=== PATIENT | female | born 1980 | race Caucasian/White ===

== ENCOUNTER 2017-03-04 22:44 | Emergency (ER) | payer MEDICAID ==
[2017-03-04 22:46] VITALS: BMI 32.9
[2017-03-04] MEDS ORDERED: Albuterol-Ipratrop 3 mg / 0.5 (3 ml) UD ONE (22:49)
--- NOTE | 2017-03-04 22:50 | ED PDOC ---
Arrival/HPI - General Time Seen by Provider: 03/04/17 22:45 Historian: Patient - History of Present Illness Narrative History of Present Illness (Text): 03/04/17 22:49 Skinny Kincaid is a 36 year old female who presents to the Emergency department complaining of shortness of breath. Patient states she began experiencing shortness of breath, cough, and throat itchiness after she went to the park this morning with her children. Patient notes she has a history of seasonal allergies. Patient reports symptoms are consistent with previous episodes of seasonal allergies. Patient denies any fever, chills, chest pain, nausea, vomiting, diarrhea, urinary symptoms, back pain, neck pain, headache, dizziness , or any other complaints. Time/Duration: Other (this morning) Symptom Onset: Gradual Symptom Course: Unchanged Activities at Onset: Light Context: Other (Park) Past Medical History - Provider Review Nursing Documentation Reviewed: Yes - Infectious Disease Hx of Infectious Diseases: None - Tetanus Immunization Tetanus Immunization: Unknown - Past Medical History Past Medical History: No Previous - Renal Hx Kidney Stones: Yes - Musculoskeletal/Rheumatological Hx Back Pain: Yes - Psychiatric Hx Depression: No Hx Emotional Abuse: No Hx Physical Abuse: No Hx Substance Use: No - Surgical History Hx Cholecystectomy: Yes - Anesthesia Hx Anesthesia: Yes Hx Anesthesia Reactions: No Hx Malignant Hyperthermia: No - Suicidal Assessment Feels Threatened In Home Enviroment: No Family/Social History - Physician Review Nursing Documentation Reviewed: Yes Family/Social History: No Known Family HX Smoking Status: Never Smoked Hx Alcohol Use: No Hx Substance Use: No Allergies/Home Meds Allergies/Adverse Reactions: Allergies No Known Allergies Allergy (Verified 03/04/17 22:46) Review of Systems - Physician Review All systems were reviewed & negative as marked: Yes - Review of Systems Constitutional: Normal. absent: Fevers Eyes: Normal ENT: Sore Throat (+throat itchiness) Respiratory: SOB, Cough Cardiovascular: Normal. absent: Chest Pain Gastrointestinal: Normal. absent: Abdominal Pain, Diarrhea, Nausea, Vomiting Genitourinary Female: Normal. absent: Dysuria, Frequency, Hematuria, Urine Output Changes Musculoskeletal: Normal. absent: Back Pain, Neck Pain Skin: Normal. absent: Rash Neurological: Normal. absent: Headache, Dizziness Endocrine: Normal Hemo/Lymphatic: Normal Psychiatric: Normal Physical Exam Vital Signs Reviewed: Yes Vital Signs Pulse Resp BP Pulse Ox 03/05/17 00:45 110 H 20 120/70 96 03/04/17 22:57 14 98 03/04/17 22:51 118 H 157/115 H 98 Temperature: Afebrile Blood Pressure: Normal Pulse: Regular Respiratory Rate: Normal Appearance: Positive for: Well-Appearing, Non-Toxic, Comfortable Pain Distress: None Mental Status: Positive for: Alert and Oriented X 3 - Systems Exam Head: Present: Atraumatic, Normocephalic Pupils: Present: PERRL Extroacular Muscles: Present: EOMI Conjunctiva: Present: Normal Ears: Present: Normal, NORMAL TM, Normal Canal. No: Erythema Mouth: Present: Moist Mucous Membranes Pharnyx: Present: Normal. No: ERYTHEMA, EXUDATE, TONSILS ENLARGED, Peritonsilar Swelling, Uvular Deviation, Muffled/Hoarse Voice, Strider, Soft Palate/Uvular Edema Nose (External): Present: Atraumatic Nose (Internal): Present: Normal Inspection Neck: Present: Normal Range of Motion Respiratory/Chest: Present: Wheezes. No: Respiratory Distress, Accessory Muscle Use Cardiovascular: Present: Regular Rate and Rhythm, Normal S1, S2. No: Murmurs Abdomen: Present: Normal Bowel Sounds. No: Tenderness, Distention, Peritoneal Signs Back: Present: Normal Inspection Upper Extremity: Present: Normal Inspection. No: Cyanosis, Edema Lower Extremity: Present: Normal Inspection. No: Edema Neurological: Present: GCS=15, CN II-XII Intact, Speech Normal Skin: Present: Warm, Dry, Normal Color. No: Rashes Psychiatric: Present: Alert, Oriented x 3, Normal Insight, Normal Concentration Medical Decision Making ED Course and Treatment: 03/04/17 22:49 Impression: 36 year old female complaining of shortness of breath, cough, and throat itchiness today. Differential Diagnosis include but are not limited to: asthmatic bronchitis vs. asthma Plan: -- Benadryl -- Duoneb -- Solu-medrol -- Reassess and disposition Progress Notes: 03/05/17 02:25 On re-evaluation, the patient feels better and is in no acute distress. I have discussed the results and plan with the patient, who expresses understanding. Patient in agreement with plan to discharged home. Patient is stable for discharge. Patient was instructed to follow up with physician/clinic in 1-2 days or return if symptoms worsen or new concerning symptoms arise. Re-evaluation Time: 00:27 Reassessment Condition: Re-examined, Improved - Medication Orders Current Medication Orders: Discontinued Medications Albuterol/Ipratropium (Duoneb 3 Mg/0.5 Mg (3 Ml) Ud) Confirm Administered Dose 9 ml .ROUTE .STK-MED ONE Stop: 03/04/17 22:50 Last Admin: 03/04/17 23:26 Dose: 9 ml Albuterol/Ipratropium (Duoneb 3 Mg/0.5 Mg (3 Ml) Ud) 3 ml IH Q15M MATT Last Admin: 03/04/17 23:15 Dose: 3 ml Diphenhydramine HCl (Benadryl) 25 mg IVP ONCE ONE Stop: 03/04/17 22:54 Last Admin: 03/04/17 23:13 Dose: 25 mg Methylprednisolone (Solu-Medrol) 125 mg IVP ONCE ONE Stop: 03/04/17 22:54 Last Admin: 03/04/17 23:05 Dose: 125 mg - Ivetteibe Statement The provider has reviewed the documentation as recorded by the Edwar Montelongo All medical record entries made by the Edwar were at my direction and personally dictated by me. I have reviewed the chart and agree that the record accurately reflects my personal performance of the history, physical exam, medical decision making, and the department course for this patient. I have also personally directed, reviewed, and agree with the discharge instructions and disposition. Disposition/Present on Arrival - Present on Arrival Any Indicators Present on Arrival: No History of DVT/PE: No History of Uncontrolled Diabetes: No Urinary Catheter: No History Surgical Site Infection Following: None - Disposition Have Diagnosis and Disposition been Completed?: Yes Diagnosis: Asthmatic bronchitis Disposition: HOME/ ROUTINE Disposition Time: 00:28 Condition: GOOD Discharge Instructions (ExitCare): Bronchospasm (ED) Prescriptions: Albuterol 0.083% [Albuterol 0.083% Inhal Shilpa (2.5 mg/3 ml) UD] 2.5 mg IH QID # 25 neb Nebulizer and Compressor [Comp-Air Elite Comp Nebulizer] 1 each MC QID #1 each predniSONE [predniSONE Tab] 20 mg PO TID #15 tab Albuterol HFA [Ventolin HFA] 1 puff IH QID #1 puff
[2017-03-04] MEDS ORDERED: DiphenhydrAMINE 50 mg/ml Inj IVP ONE (22:53)
[2017-03-04] MEDS: Albuterol-Ipratrop 3 mg / 0.5 (3 ml) UD IH SCH (23:15)
[2017-03-05 00:46] VITALS: BP 120/70; PULSE 110; RESP 20; O2SAT 96
== END 2017-03-05 00:54 | disposition home or self-care (01) ==
LOC: ED 22:44
DX: J45.909 Unspecified asthma, uncomplicated (principal)
CPT/HCPCS: 96374; 96375; 99285; J1200; J2930

== ENCOUNTER 2017-04-16 10:33 | Emergency (ER) | payer MEDICAID ==
[2017-04-16 10:41] VITALS: BMI 35.1
[2017-04-16 10:46] VITALS: TEMP 97.8
--- NOTE | 2017-04-16 11:33 | ED PDOC ---
Arrival/HPI - General Chief Complaint: Upper Extremity Problem/Injury Time Seen by Provider: 04/16/17 11:25 Historian: Patient - History of Present Illness Narrative History of Present Illness (Text): 04/16/17 11:19 A 37 year old female presents to the emergency department complaining of left neck and shoulder pain for the past 5 days after a slip and fall in the shower. Pain is described as a burning sensation which is worse with movement. She was seen by her PMD 3 days ago and prescribed Naproxen and Flexeril. Medications have brought her minimal relief. Patient denies any head trauma, loss of consciousness, other injuries or complaints at this time. PMD: Dr. Chavez Time/Duration: Other (5 days) Symptom Onset: Sudden Symptom Course: Unchanged Quality: Burning Activities at Onset: Light Modifying Factors (Text): minimal relief with medications Context: Home Past Medical History - Provider Review Nursing Documentation Reviewed: Yes - Infectious Disease Hx of Infectious Diseases: None - Tetanus Immunization Tetanus Immunization: Unknown - Past Medical History Past Medical History: No Previous - Renal Hx Kidney Stones: Yes - Musculoskeletal/Rheumatological Hx Back Pain: Yes - Psychiatric Hx Depression: No Hx Emotional Abuse: No Hx Physical Abuse: No Hx Substance Use: No - Surgical History Hx Cholecystectomy: Yes - Anesthesia Hx Anesthesia: Yes Hx Anesthesia Reactions: No Hx Malignant Hyperthermia: No - Suicidal Assessment Feels Threatened In Home Enviroment: No Family/Social History - Physician Review Nursing Documentation Reviewed: Yes Family/Social History: Unknown Family HX Smoking Status: Never Smoked Hx Alcohol Use: No Hx Substance Use: No Allergies/Home Meds Allergies/Adverse Reactions: Allergies No Known Allergies Allergy (Verified 04/16/17 10:41) Home Medications: Home Meds Medication Instructions Recorded Confirmed RX: Cyclobenzaprine HCl [Amrix] 10 mg PO HS 04/16/17 04/16/17 RX: Naproxen [Naprosyn] 500 mg PO BID 04/16/17 04/16/17 RX: Ranitidine HCl [Acid Silverware Supervisor 1 tab PO BID 04/16/17 04/16/17 150] Physical Exam - Physical Exam Narrative Physical Exam (Text): - Review of Systems Constitutional: Normal. absent: Fatigue, Weight Change, Fevers Eyes: Normal ENT: Normal Respiratory: Normal absent: SOB, Cough, Sputum Cardiovascular: Normal absent: Chest pain, Palpitations, Syncope Gastrointestinal: Normal absent: Abdominal pain, Diarrhea, Nausea, Vomiting Genitourinary: Normal. absent: Dysuria, Frequency, Hematuria Musculoskeletal: Left neck and shoulder pain. absent: Arthralgias, Back Pain Skin: Normal Neurological: Normal absent: Focal Weakness Endocrine: Normal Hemo/Lymphatic: Normal Psychiatric: Normal - Physical exam Patient appears age appropriate, speaking full sentences without difficulty. - Systems Exam Head: Present: Atraumatic, Normocephalic Pupils: Present: PERRL Extraocular Muscles: Present: EOMI Conjunctiva: Present: Normal Mouth: Present: Moist Mucous Membranes Neck: Present: Full active and passive range of motion to the neck and bilateral shoulders. Tenderness with palpation to the left trapezius muscle. No : MIDLINE TENDERNESS Respiratory/Chest: Present: Clear to Auscultation, Good Air Exchange. No: Respiratory Distress, Accessory Muscle Use, Tachypneic Cardiovascular: Present: Regular Rate and Rhythm, Normal S1, S2, Peripheral Pulses Present. No: Murmurs Abdomen: Present: Normal Bowel Sounds, No: Tenderness, Peritoneal Signs, Rebound, Guarding, Distention Back: Present: Normal Inspection. No: Midline Tenderness, Paraspinal Tenderness Upper Extremity: Present: Normal Inspection. No: Cyanosis, Edema Lower Extremity: Present: Normal Inspection. No: Edema Neurological: Present: GCS=15, Speech Normal, cranial nerves II through XII fully intact with no cerebellar abnormality, neuro-sensory fully intact. No focal neurological deficits. Skin: Present: Warm, Dry, Normal Color. No: Rashes Lymphatic: Present: OX3, NI, NC Psychiatric: Present: Alert, Oriented x 3, Normal Insight, Normal Concentration Vital Signs Reviewed: Yes Vital Signs Temp Pulse Resp BP Pulse Ox 04/16/17 10:45 97.8 F 86 18 134/83 99 Temperature: Afebrile Blood Pressure: Normal Pulse: Regular Respiratory Rate: Normal Appearance: Positive for: Well-Appearing, Non-Toxic, Comfortable Pain Distress: None Mental Status: Positive for: Alert and Oriented X 3 Medical Decision Making ED Course and Treatment: 04/16/17 11:19 Impression: A 37 year old female with left neck and shoulder pain status post a mechanical fall. On physical examination the patient has tenderness with palpation to the left trapezius muscle but full active and passive range of motion to the bilateral shoulder and neck. Differential Diagnosis include but are not limited to: sprain vs. strain vs. cervical radiculopathy Plan: -- Cerival Spine X-ray -- Toradol and Valium -- Reassess and disposition Progress Notes: 04/16/17 12:27 No acute findings on patient's x-rays pt received Toradol and Valium reported symptomatic relief. Pt states is not driving home. stable for dc home. instructed not to drive/operate machinery/drink/do drugs with medication Pt verbalized understands to return to the ER right away for new or worsening symptoms or for inability to f/u with PMD or specialist as instructed. Patient verbalized full agreement with and understanding of discharge instructions. States that she agrees with the plan and disposition. Verbalized and repeated discharge instructions and plan. I have given the patient opportunity to ask any additional questions. - RAD Interpretation Radiology Orders: 04/16/17 11:26 CERVICAL SPINE AP & LATERAL [RAD] Stat - Medication Orders Current Medication Orders: Discontinued Medications Diazepam (Valium) 5 mg PO ONCE ONE Stop: 04/16/17 11:26 Last Admin: 04/16/17 11:47 Dose: 5 mg Ketorolac Tromethamine (Toradol) 30 mg IM STAT STA Stop: 04/16/17 11:26 Last Admin: 04/16/17 11:47 Dose: 30 mg - Scribe Statement The provider has reviewed the documentation as recorded by the Edwar Hurtado Provider Scribe Attestation: All medical record entries made by the Scribe were at my direction and personally dictated by me. I have reviewed the chart and agree that the record accurately reflects my personal performance of the history, physical exam, medical decision making, and the department course for this patient. I have also personally directed, reviewed, and agree with the discharge instructions and disposition. Disposition/Present on Arrival - Present on Arrival Any Indicators Present on Arrival: No History of DVT/PE: No History of Uncontrolled Diabetes: No Urinary Catheter: No History of Decub. Ulcer: No History Surgical Site Infection Following: None - Disposition Have Diagnosis and Disposition been Completed?: Yes Diagnosis: Neck pain Disposition: HOME/ ROUTINE Disposition Time: 12:29 Patient Plan: Discharge Condition: GOOD Discharge Instructions (ExitCare): Cervical Radiculopathy (ED), Cervical Sprain (ED) Additional Instructions: PLEASE RETURN TO THE EMERGENCY DEPARTMENT FOR NEW OR WORSENING SYMPTOMS. RETURN RIGHT AWAY IF YOU CANNOT FOLLOW UP WITH YOUR PRIMARY CARE DOCTOR, CLINIC, OR SPECIALIST IN 1-2 DAYS. Referrals: Rere Restrepo MD [Family Provider] - Follow up with primary
[2017-04-16 12:34] VITALS: BP 134/84; PULSE 77; RESP 16; O2SAT 98
--- NOTE | 2017-04-16 12:34 | RAD ---
PROCEDURE: Cervical Spine Radiographs. HISTORY: Pain. COMPARISON: None. FINDINGS: BONES: Alignment maintained. No fracture. Dens Intact. DISC SPACES: Normal. SOFT TISSUES: Normal. No prevertebral soft tissue swelling. OTHER FINDINGS: None. IMPRESSION: Normal cervical spine radiographs
== END 2017-04-16 12:33 | disposition home or self-care (01) ==
LOC: ED 10:33
DX: M54.2 Cervicalgia (principal)
CPT/HCPCS: 72040; 96372; 99284; J1885

== ENCOUNTER 2017-11-03 07:51 | Emergency (ER) | payer MEDICAID ==
[2017-11-03 08:00] VITALS: BMI 33.6
[2017-11-03] MEDS ORDERED: Alum-Mag Hydrox-Simethicone Susp (30 mL) PO STA (08:11)
[2017-11-03 08:22] VITALS: RESP 16; TEMP 98.2
--- NOTE | 2017-11-03 08:40 | ED PDOC ---
Arrival/HPI - General Chief Complaint: Chest Pain Time Seen by Provider: 11/03/17 08:09 Historian: Patient - History of Present Illness Narrative History of Present Illness (Text): 11/03/17 13:38 A 34 year old female, whose past medical history includes GERD, bronchitis, asthma, and atypical chest pain, presents to the emergency department for sharp , substernal, non-radiating chest pain for the last 3 days. the patient notes the pain increased with left arm movement. The patient denies any cough, shortness of breath, vomiting, or any other complaints at this time. The patient states she has not taken anything at home for her pain. Time/Duration: < week (x 3 days ) Symptom Onset: Gradual Symptom Course: Intermittent Activities at Onset: Light Context: Home Past Medical History - Provider Review Nursing Documentation Reviewed: Yes - Infectious Disease Hx of Infectious Diseases: None - Tetanus Immunization Tetanus Immunization: Unknown - Past Medical History Past Medical History: No Previous - Cardiac Hx Cardiac Disorders: No - Pulmonary Hx Respiratory Disorders: No - Neurological Hx Neurological Disorder: No - HEENT Hx HEENT Disorder: No - Renal Hx Kidney Stones: Yes - Endocrine/Metabolic Hx Endocrine Disorders: No - Hematological/Oncological Hx Blood Disorders: No - Integumentary Hx Dermatological Disorder: No - Musculoskeletal/Rheumatological Hx Back Pain: Yes - Gastrointestinal Hx Gastrointestinal Disorders: No - Genitourinary/Gynecological Hx Genitourinary Disorders: No - Psychiatric Hx Depression: No Hx Emotional Abuse: No Hx Physical Abuse: No Hx Substance Use: No - Surgical History Hx Cholecystectomy: Yes - Anesthesia Hx Anesthesia: Yes Hx Anesthesia Reactions: No Hx Malignant Hyperthermia: No - Suicidal Assessment Feels Threatened In Home Enviroment: No Family/Social History - Physician Review Nursing Documentation Reviewed: Yes Family/Social History: No Known Family HX Smoking Status: Never Smoked Hx Alcohol Use: No Hx Substance Use: No Allergies/Home Meds Allergies/Adverse Reactions: Allergies No Known Allergies Allergy (Verified 11/03/17 07:59) Home Medications: Home Meds Medication Instructions Recorded Confirmed Cyclobenzaprine HCl [Amrix] 10 mg PO HS 04/16/17 11/03/17 Review of Systems - Physician Review All systems were reviewed & negative as marked: Yes - Review of Systems Respiratory: absent: SOB, Cough Cardiovascular: Chest Pain Physical Exam Vital Signs Reviewed: Yes Vital Signs Temp Pulse Resp BP Pulse Ox 11/03/17 11:08 77 16 116/78 99 11/03/17 08:21 98.2 F 82 16 133/76 Temperature: Afebrile Blood Pressure: Normal Pulse: Regular Respiratory Rate: Normal Appearance: Positive for: Well-Appearing, Non-Toxic, Comfortable Pain Distress: None Mental Status: Positive for: Alert and Oriented X 3 - Systems Exam Head: Present: Atraumatic, Normocephalic Pupils: Present: PERRL Extroacular Muscles: Present: EOMI Conjunctiva: Present: Normal Mouth: Present: Moist Mucous Membranes Neck: Present: Normal Range of Motion Respiratory/Chest: Present: Clear to Auscultation, Good Air Exchange. No: Respiratory Distress, Accessory Muscle Use Cardiovascular: Present: Regular Rate and Rhythm, Normal S1, S2. No: Murmurs Abdomen: Present: Normal Bowel Sounds. No: Tenderness, Distention, Peritoneal Signs Back: Present: Normal Inspection Upper Extremity: Present: Normal Inspection. No: Cyanosis, Edema Lower Extremity: Present: Normal Inspection. No: Edema Neurological: Present: GCS=15, CN II-XII Intact, Speech Normal Skin: Present: Warm, Dry, Normal Color. No: Rashes Psychiatric: Present: Alert, Oriented x 3, Normal Insight, Normal Concentration Medical Decision Making ED Course and Treatment: 11/03/17 08:38 Impression: A 37 year old female with chest pain and shortness of breath for 3 days. Differential Diagnosis included but are not limited to: Plan: -- EKG -- Chest X-ray -- Labs -- Maalox Plus, Pepcid -- Reassess and disposition Progress Notes: 11/03/17 13:42 EKG: Ordered, reviewed, and independently interpreted the EKG. Rate : 85 BPM Rhythm : NSR Interpretation : No ST-segment elevations or depressions, no T-wave inversions, normal intervals. Comparison : No previous EKG for comparison. - Lab Interpretations Lab Results: 11/03/17 08:30 11/03/17 08:30 Lab Results 11/03/17 08:30: POC Glucose (mg/dL) 121 H 11/03/17 08:30: Sodium 137, Potassium 4.4, Chloride 103, Carbon Dioxide 24, Anion Gap 14, BUN 9, Creatinine 0.5 L, Est GFR ( Amer) > 60, Est GFR (Non -Af Amer) > 60, Random Glucose 116 H, Calcium 9.1, Magnesium 1.7, Total Bilirubin 0.6, AST 23, ALT 30, Alkaline Phosphatase 73, Lactate Dehydrogenase 348, Total Creatine Kinase 63, Troponin I < 0.01, Total Protein 7.5, Albumin 3.9 , Globulin 3.6, Albumin/Globulin Ratio 1.1 11/03/17 08:30: WBC 7.9 D, RBC 5.43, Hgb 11.7 L, Hct 37.4, MCV 68.9 L, MCH 21.5 L, MCHC 31.3, RDW 15.5 H, Plt Count 210, MPV 11.1 H, Gran % 61.9, Lymph % ( Auto) 28.2, [place] % (Auto) 7.1 H, Eos % (Auto) 2.5, Baso % (Auto) 0.3, Gran # 4.86, Lymph # 2.2, [place] # 0.6, Eos # 0.2, Baso # 0.02 - RAD Interpretation Radiology Orders: 11/03/17 08:09 CHEST PORTABLE [RAD] Stat - Medication Orders Current Medication Orders: Discontinued Medications Al Hydrox/Mg Hydrox/Simethicone (Maalox Plus 30 Ml) 30 ml PO STAT STA Stop: 11/03/17 08:12 Last Admin: 11/03/17 08:19 Dose: 30 ml Famotidine (Pepcid) 20 mg IVP STAT STA Stop: 11/03/17 08:11 Last Admin: 11/03/17 08:19 Dose: 20 mg IVP Administration Document 11/03/17 08:19 O (Rec: 11/03/17 08:19 EWO [id number]) Charges for Administration # of IVP Administrations 1 - Scribe Statement The provider has reviewed the documentation as recorded by the Edwar Ramirez Provider Scribe Attestation: All medical record entries made by the Scribe were at my direction and personally dictated by me. I have reviewed the chart and agree that the record accurately reflects my personal performance of the history, physical exam, medical decision making, and the department course for this patient. I have also personally directed, reviewed, and agree with the discharge instructions and disposition. Disposition/Present on Arrival - Present on Arrival Any Indicators Present on Arrival: No History of DVT/PE: No History of Uncontrolled Diabetes: No Urinary Catheter: No History of Decub. Ulcer: No History Surgical Site Infection Following: None - Disposition Have Diagnosis and Disposition been Completed?: Yes Diagnosis: Atypical chest pain Disposition: HOME/ ROUTINE Disposition Time: 09:35 Condition: GOOD Discharge Instructions (ExitCare): Chest Pain (ED) Additional Instructions: Thank you for letting us take care of you today. The emergency medical care you received today was directed at your acute symptoms. If you were prescribed any medication, please fill it and take as directed. It may take several days for your symptoms to resolve. Return to the Emergency Department if your symptoms worsen, do not improve, or if you have any other problems. Please contact your doctor or call one of the physicians/clinics you have been referred to that are listed on the Patient Visit Information form that is included in your discharge packet. Bring any paperwork you were given at discharge with you along with any medications you are taking to your follow up visit. Our treatment cannot replace ongoing medical care by a primary care provider (PCP) outside of the emergency department. Thank you for allowing the [facility] team to be part of your care today. Follow up with your doctor in 2-3 days for re-evaluation and further management. Prescriptions: Ibuprofen [Motrin] 600 mg PO Q6 PRN #20 tab PRN Reason: Pain, Moderate (4-7) Referrals: Rere Restrepo MD [Primary Care Provider] - Follow up with primary Forms: [facility] (Estonian)
[2017-11-03 08:52] LABS: BASO # 0.02 K/mm3 (0.0-2.0); BASO % 0.3 % (0.0-3.0); EOS # 0.2 (0.0-0.7); EOS % 2.5 % (1.5-5.0); GRAN # 4.86 (1.4-6.5); GRAN % 61.9 % (50.0-68.0); HEMOGLOBIN 11.7 g/dL (12.0-16.0); LYMPH # 2.2 (1.2-3.4); LYMPH % 28.2 % (22.0-35.0); MEAN CELL VOLUME 68.9 fl (80.0-105.0); MEAN CORPUSCULAR HEMOGLOBIN 21.5 pg (25.0-35.0); MEAN CORPUSCULAR HGB CONC 31.3 g/dl (31.0-37.0); MEAN PLATELET VOLUME 11.1 fl (7.0-11.0); MONO # 0.6 (0.1-0.6); MONO % 7.1 % (1.0-6.0); RBC 5.43 10^6/uL (3.5-6.1); RED CELL DISTRIBUTION WIDTH 15.5 % (11.5-14.5); WHITE BLOOD COUNT 7.9 10^3/ul (4.5-11.0)
[2017-11-03 08:59] LABS: ALB/GLOB RATIO 1.1 (1.1-1.8); ALBUMIN 3.9 g/dL (3.0-4.8); ALT/SGPT 30 U/L (7-56); AST/SGOT 23 U/L (14-36); BLOOD UREA NITROGEN 9 mg/dL (7-21); CALCIUM 9.1 mg/dL (8.4-10.5); GFR AFRICAN-AMERICAN > 60; GFR NON-AFRICAN AMERICAN > 60; MAGNESIUM 1.7 mg/dL (1.7-2.2)
[2017-11-03 09:08] LABS: TROPONIN I < 0.01 ng/mL
--- NOTE | 2017-11-03 10:28 | RAD ---
HISTORY: chest pain COMPARISON: 10/21/2015 FINDINGS: LUNGS: No active pulmonary disease. PLEURA: No significant pleural effusion identified, no pneumothorax apparent. CARDIOVASCULAR: Mild cardiomegaly OSSEOUS STRUCTURES: No significant abnormalities. VISUALIZED UPPER ABDOMEN: Normal. OTHER FINDINGS: None. IMPRESSION: No active disease.
[2017-11-03 11:13] VITALS: BP 116/78; PULSE 77; O2SAT 99
--- NOTE | 2017-11-03 15:37 | CARD ---
APPROVED REPORT EKG Measurement Heart [id number] MI [id number] <Conclusion> Normal sinus rhythm Possible Left atrial enlargement Borderline ECG
== END 2017-11-03 11:08 | disposition home or self-care (01) ==
LOC: ED 07:51
DX: R07.89 Other chest pain (principal); K21.9 Gastro-esophageal reflux disease without esophagitis

== ENCOUNTER 2018-02-26 23:47 | Emergency (ER) | payer MEDICAID ==
[2018-02-26 23:55] VITALS: BMI 31.2
[2018-02-27] MEDS ORDERED: Promethazine/Cod 6.25mg-10mg/5ml Syr UD PO STA (00:29)
--- NOTE | 2018-02-27 00:33 | ED PDOC ---
Arrival/HPI - General Chief Complaint: Shortness Of Breath Time Seen by Provider: 02/27/18 00:22 Historian: Patient - History of Present Illness Narrative History of Present Illness (Text): 02/27/18 00:30 This 37 yo female with pmh diabetes, presents to this ED c/o cough, congestion, allergies symptoms, and wheezing x 6 days. Denies fever, cp, recent travel, sick contact, leg edema, calf pain, or abnormal gait. Time/Duration: Other (see hpi) Context: Home Past Medical History - Provider Review Nursing Documentation Reviewed: Yes - Infectious Disease Hx of Infectious Diseases: None - Tetanus Immunization Tetanus Immunization: Unknown - Past Medical History Past Medical History: No Previous - Cardiac Hx Cardiac Disorders: No - Pulmonary Hx Respiratory Disorders: No - Neurological Hx Neurological Disorder: No - HEENT Hx HEENT Disorder: No - Renal Hx Renal Disorder: Yes Hx Kidney Stones: Yes - Endocrine/Metabolic Hx Endocrine Disorders: No - Hematological/Oncological Hx Blood Disorders: No - Integumentary Hx Dermatological Disorder: No - Musculoskeletal/Rheumatological Hx Musculoskeletal Disorders: Yes Hx Back Pain: Yes - Gastrointestinal Hx Gastrointestinal Disorders: No - Genitourinary/Gynecological Hx Genitourinary Disorders: No - Psychiatric Hx Psychophysiologic Disorder: No Hx Substance Use: No - Surgical History Hx Cholecystectomy: Yes - Anesthesia Hx Anesthesia: Yes Hx Anesthesia Reactions: No Hx Malignant Hyperthermia: No - Suicidal Assessment Feels Threatened In Home Enviroment: No Family/Social History - Physician Review Nursing Documentation Reviewed: Yes Family/Social History: Other (noncontributory) Smoking Status: Never Smoked Hx Alcohol Use: No Hx Substance Use: No Allergies/Home Meds Allergies/Adverse Reactions: Allergies ibuprofen Allergy (Verified 02/26/18 23:51) RASH Home Medications: Home Meds Medication Instructions Recorded Confirmed Fexofenadine/Pseudoephedrine 1 tab PO DAILY 02/26/18 02/26/18 [Ct-D 24 Hour Tablet] Review of Systems - Review of Systems Constitutional: Normal. absent: Fatigue, Weight Change, Fevers Eyes: Normal ENT: Normal. absent: Sore Throat, Rhinorrhea, Epistaxis, Sinus Congestion Respiratory: Cough, Wheezing Cardiovascular: Normal. absent: Chest Pain, Palpitations Gastrointestinal: Normal. absent: Abdominal Pain, Nausea, Vomiting Genitourinary Female: Normal. absent: Dysuria, Frequency, Hematuria Musculoskeletal: Normal. absent: Back Pain, Neck Pain Skin: Normal Neurological: Normal. absent: Headache, Dizziness Endocrine: Normal Hemo/Lymphatic: Normal Psychiatric: Normal Physical Exam Vital Signs Temp Pulse Resp BP Pulse Ox 02/27/18 02:41 97.1 F L 97 H 17 136/75 98 02/26/18 23:53 97.7 F 104 H 21 157/98 H 97 Temperature: Afebrile Blood Pressure: Normal Pulse: Regular Respiratory Rate: Normal Appearance: Positive for: Well-Appearing, Non-Toxic, Comfortable Pain Distress: None Mental Status: Positive for: Alert and Oriented X 3 - Systems Exam Head: Present: Atraumatic, Normocephalic Pupils: Present: PERRL Extroacular Muscles: Present: EOMI Conjunctiva: Present: Normal Mouth: Present: Moist Mucous Membranes Pharnyx: Present: Normal. No: ERYTHEMA, EXUDATE, TONSILS ENLARGED Neck: Present: Normal Range of Motion Respiratory/Chest: Present: Good Air Exchange, Wheezes, Rhonchi. No: Respiratory Distress, Accessory Muscle Use, Rales, Retracting, Tachypneic Cardiovascular: Present: Regular Rate and Rhythm, Normal S1, S2. No: Murmurs Abdomen: No: Tenderness, Distention, Peritoneal Signs Back: Present: Normal Inspection Upper Extremity: Present: Normal Inspection. No: Cyanosis, Edema Lower Extremity: Present: Normal Inspection. No: Edema Neurological: Present: GCS=15, CN II-XII Intact, Speech Normal Skin: Present: Warm, Dry, Normal Color. No: Rashes Psychiatric: Present: Alert, Oriented x 3, Normal Insight, Normal Concentration Medical Decision Making ED Course and Treatment: 02/27/18 02:19 Re-evaluation. Patient feels better. Discussed results and plan with patient who expresses understanding. All questions answered and there is agreement with the plan to discharge home with instructions. Patient stable for discharge. Return if symptoms persist or worsen. I reviewed the risk of Prednisone with patient, not only but including AVN, glaucoma, DM, osteoporosis. She understood risk, but shes still agreed to take Prednisone, I recommended patient ABX since I could not r/o PNA due to motion artifact on x- rays lateral view. On revaluation, Vital signs improved. PERC negative for PE Re-evaluation Time: 02:21 Reassessment Condition: Re-examined, Improved - RAD Interpretation Narrative RAD Interpretations (Text): 02/27/18 02:21 Chest x-rays: NAD. Poor imaging due to motion on lateral view. Radiology Orders: 02/27/18 00:30 CHEST TWO VIEWS (PA/LAT) [RAD] Stat - Medication Orders Current Medication Orders: Discontinued Medications Albuterol/Ipratropium (Duoneb 3 Mg/0.5 Mg (3 Ml) Ud) 3 ml IH Q15M MATT Stop: 02/27/18 01:01 Last Admin: 02/27/18 01:01 Dose: 3 ml Azithromycin (Zithromax) 500 mg PO STAT STA PRN Reason: Protocol Stop: 02/27/18 02:19 Last Admin: 02/27/18 02:36 Dose: 500 mg Prednisone (Prednisone Tab) 60 mg PO STAT ONE Stop: 02/27/18 00:30 Last Admin: 02/27/18 00:38 Dose: 60 mg Promethazine HCl/Codeine (Phenergan/Codeine Oral Syrup) 5 ml PO STAT STA Stop: 02/27/18 00:30 Last Admin: 02/27/18 00:38 Dose: 5 ml Disposition/Present on Arrival - Present on Arrival Any Indicators Present on Arrival: No History of DVT/PE: No History of Uncontrolled Diabetes: No Urinary Catheter: No History of Decub. Ulcer: No History Surgical Site Infection Following: None - Disposition Have Diagnosis and Disposition been Completed?: Yes Diagnosis: Acute bronchitis Disposition: HOME/ ROUTINE Disposition Time: 02:23 Patient Plan: Discharge Condition: GOOD Discharge Instructions (ExitCare): Acute Bronchitis, Adult (DC) Additional Instructions: Call private doctor for follow up visit in 1-2 days. take medication as instructed. Return to emergency if [id number] worsen. Do not drive or operate machinery if you take Phenergan with codeine for at least 12 hours. Prescriptions: Albuterol 0.083% [Albuterol 0.083% Inhal Shilpa (2.5 mg/3 ml) UD] 2.5 mg IH Q6H PRN #1 packet PRN Reason: Wheezing Azithromycin [Z-Sawyer] 250 mg PO DAILY #4 tab predniSONE [predniSONE Tab] 40 mg PO DAILY #8 tab Promethazine/Codeine [Codeine/Promethazine 10 MG/5 Ml-6.25 MG/5 Ml] 5 ml PO Q4H PRN #90 ml PRN Reason: Cough Referrals: Rere Restrepo MD [Family Provider] - Follow up with primary Forms: [employer] (Upper Sorbian)
[2018-02-27] MEDS ORDERED: Albuterol-Ipratrop 3 mg / 0.5 (3 ml) UD ONE (00:35)
[2018-02-27] MEDS: Albuterol-Ipratrop 3 mg / 0.5 (3 ml) UD IH SCH ×3 (00:38→01:01)
[2018-02-27 02:46] VITALS: BP 136/75; PULSE 97; RESP 17; TEMP 97.1; O2SAT 98
--- NOTE | 2018-02-27 08:16 | RAD ---
HISTORY: Cough. COMPARISON: 11/03/2017 TECHNIQUE: Chest PA and lateral FINDINGS: LUNGS: No active pulmonary disease. PLEURA: No significant pleural effusion identified. No pneumothorax apparent. CARDIOVASCULAR: No radiographic findings to suggest acute or significant cardiovascular disease. OSSEOUS STRUCTURES: No significant abnormalities. VISUALIZED UPPER ABDOMEN: Normal. OTHER FINDINGS: None. IMPRESSION: No active disease. No significant interval change compared to the prior examination(s).
== END 2018-02-27 02:41 | disposition home or self-care (01) ==
LOC: ED 23:47
DX: J20.9 Acute bronchitis, unspecified (principal)

== ENCOUNTER 2018-05-10 15:14 | Emergency (ER) | payer MEDICAID ==
[2018-05-10 15:48] VITALS: RESP 18; TEMP 98.1; O2SAT 99; BMI 33.6
--- NOTE | 2018-05-10 16:24 | ED PDOC ---
Arrival/HPI - General Chief Complaint: Headache Time Seen by Provider: 05/10/18 15:22 Historian: Patient - History of Present Illness Narrative History of Present Illness (Text): 05/10/18 16:01 A 38 year old female, whose past medical history includes diabetes, presents to the emergency department complaining of headache for the past week. Patient reports also experiencing bilateral ear itchiness and sore throat. States having experienced similar symptoms in the past. Now feels pain in the middle of his head, not worse of life. Patient denies any nausea, vomiting, fever, neck pain, chest pain, shortness of breath, or any other complaints at this time. Also, patient mentions experiencing seasonal allergies as well. No PMD Past Medical History - Provider Review Nursing Documentation Reviewed: Yes - Infectious Disease Hx of Infectious Diseases: None - Tetanus Immunization Tetanus Immunization: Unknown - Past Medical History Past Medical History: No Previous - Cardiac Hx Cardiac Disorders: No - Pulmonary Hx Respiratory Disorders: No - Neurological Hx Neurological Disorder: No - HEENT Hx HEENT Disorder: No - Renal Hx Renal Disorder: Yes Hx Kidney Stones: Yes - Endocrine/Metabolic Hx Endocrine Disorders: No - Hematological/Oncological Hx Blood Disorders: No - Integumentary Hx Dermatological Disorder: No - Musculoskeletal/Rheumatological Hx Musculoskeletal Disorders: Yes Hx Back Pain: Yes - Gastrointestinal Hx Gastrointestinal Disorders: No - Genitourinary/Gynecological Hx Genitourinary Disorders: No - Psychiatric Hx Psychophysiologic Disorder: No Hx Substance Use: No - Surgical History Hx Cholecystectomy: Yes - Anesthesia Hx Anesthesia: Yes Hx Anesthesia Reactions: No Hx Malignant Hyperthermia: No - Suicidal Assessment Feels Threatened In Home Enviroment: No Family/Social History - Physician Review Nursing Documentation Reviewed: Yes Family/Social History: No Known Family HX Smoking Status: Never Smoked Hx Alcohol Use: No Hx Substance Use: No Allergies/Home Meds Allergies/Adverse Reactions: Allergies ibuprofen Allergy (Verified 02/26/18 23:51) RASH Home Medications: Home Meds Medication Instructions Recorded Confirmed Acetaminophen/Butalbital/Caf 1 tab PO TID PRN 05/10/18 05/10/18 [Fioricet] Fluticasone Propionate [Flovent 2 spray NS DAILY 05/10/18 05/10/18 Diskus] Montelukast [Singulair] 10 mg PO DAILY 05/10/18 05/10/18 Review of Systems - Physician Review All systems were reviewed & negative as marked: Yes - Review of Systems Constitutional: absent: Fevers Eyes: Other (bilateral ear itchiness) Respiratory: absent: SOB Cardiovascular: absent: Chest Pain Gastrointestinal: absent: Nausea, Vomiting Musculoskeletal: absent: Neck Pain Neurological: Headache Physical Exam Vital Signs Reviewed: Yes Vital Signs Temp Pulse Resp BP Pulse Ox 05/10/18 15:29 98.1 F 107 H 18 123/75 99 Temperature: Afebrile Blood Pressure: Normal Pulse: Regular Respiratory Rate: Normal Appearance: Positive for: Well-Appearing, Non-Toxic, Comfortable Pain Distress: None Mental Status: Positive for: Alert and Oriented X 3 - Systems Exam Head: Present: Atraumatic, Normocephalic Pupils: Present: PERRL Extroacular Muscles: Present: EOMI Conjunctiva: Present: Normal Ears: Present: Normal, NORMAL TM, Normal Canal. No: Erythema, TM Bulging, Fluid , TM Perf Mouth: Present: Moist Mucous Membranes Neck: Present: Normal Range of Motion Respiratory/Chest: Present: Clear to Auscultation, Good Air Exchange. No: Respiratory Distress, Accessory Muscle Use Cardiovascular: Present: Regular Rate and Rhythm, Normal S1, S2. No: Murmurs Abdomen: No: Tenderness, Distention, Peritoneal Signs Back: Present: Normal Inspection Upper Extremity: Present: Normal Inspection. No: Cyanosis, Edema Lower Extremity: Present: Normal Inspection. No: Edema Neurological: Present: GCS=15, CN II-XII Intact, Speech Normal Skin: Present: Warm, Dry, Normal Color. No: Rashes Psychiatric: Present: Alert, Oriented x 3, Normal Insight, Normal Concentration Medical Decision Making ED Course and Treatment: 05/10/18 16:03 Impression: 38 year old female with headache. Physical exam is unremarkable. Differential Diagnosis included but are not limited to: Sinusitis vs. Seasonal Allergies. Plan: -- Head CT -- Sudafed -- Reassess and disposition Prior Visits: Notes and results from previous visits were reviewed. Patient was last seen in the emergency department on 02/27/2018 for cough, congestion, allergy symptoms, and wheezing. Patient was discharged home with diagnosis of acute bronchitis. Progress Notes: 05/10/2018 17:[address] IMPRESSION: No evidence of acute intracranial hemorrhage intracranial collection mass effect or midline shift. Dictator: Alsesio Lara MD - RAD Interpretation Radiology Orders: 05/10/18 16:03 Brain [HEAD W/O CONTRAST] [CT] Stat - Medication Orders Current Medication Orders: Discontinued Medications Pseudoephedrine HCl (Sudafed Tab) 30 mg PO ONCE ONE Stop: 05/10/18 16:04 Last Admin: 05/10/18 16:27 Dose: 30 mg - Scribe Statement The provider has reviewed the documentation as recorded by the [place] Provider Scribe Attestation: All medical record entries made by the Ivetteibarnie were at my direction and personally dictated by me. I have reviewed the chart and agree that the record accurately reflects my personal performance of the history, physical exam, medical decision making, and the department course for this patient. I have also personally directed, reviewed, and agree with the discharge instructions and disposition. Disposition/Present on Arrival - Present on Arrival Any Indicators Present on Arrival: No History of DVT/PE: No History of Uncontrolled Diabetes: No Urinary Catheter: No History of Decub. Ulcer: No History Surgical Site Infection Following: None - Disposition Have Diagnosis and Disposition been Completed?: Yes Diagnosis: Headache Disposition: HOME/ ROUTINE Disposition Time: 19:07 Patient Plan: Discharge Patient Problems: Current Active Problems Problem Status Onset Headache Acute Condition: GOOD Discharge Instructions (ExitCare): Headache, Adult Additional Instructions: Follow up wth your pcp and continue all meds as prescribe by your pcp. Referrals: [facility] at [facility] [place] [Outside] - Follow up with primary [facility] [Outside] - Follow up with primary [facility] [place] [Outside] - Follow up with primary Forms: [employer] (Honduran)
--- NOTE | 2018-05-10 17:35 | CT ---
Date of service: 05/10/2018 PROCEDURE: CT HEAD WITHOUT CONTRAST. HISTORY: headache COMPARISON: None available. TECHNIQUE: Axial computed tomography images were obtained through the head/brain without intravenous contrast. Radiation dose: Total exam DLP = 1020.15 mGy-cm. This CT exam was performed using one or more of the following dose reduction techniques: Automated exposure control, adjustment of the mA and/or kV according to patient size, and/or use of iterative reconstruction technique. FINDINGS: HEMORRHAGE: No intracranial hemorrhage. BRAIN: No mass effect or edema. No atrophy or chronic microvascular ischemic changes. VENTRICLES: Unremarkable. No hydrocephalus. CALVARIUM: Unremarkable. PARANASAL SINUSES: Unremarkable as visualized. No significant inflammatory changes. MASTOID AIR CELLS: Unremarkable as visualized. No inflammatory changes. OTHER FINDINGS: None. IMPRESSION: No evidence of acute intracranial hemorrhage intracranial collection mass effect or midline shift.
[2018-05-10 19:34] VITALS: BP 134/71; PULSE 81
== END 2018-05-10 19:21 | disposition home or self-care (01) ==
LOC: ED 15:14
DX: R51 Headache (principal); E11.9 Type 2 diabetes mellitus without complications

== ENCOUNTER 2019-02-21 21:22 | Emergency (ER) | payer MEDICAID ==
[2019-02-21 21:47] VITALS: RESP 18; TEMP 97.4; BMI 31.7
[2019-02-21] MEDS: Albuterol-Ipratrop 3 mg / 0.5 (3 ml) UD IH SCH ×3 (22:23→23:15)
--- NOTE | 2019-02-21 22:31 | ED PDOC ---
Arrival/HPI - General Chief Complaint: Cough, Cold, Congestion Time Seen by Provider: 02/21/19 21:22 Historian: Patient - History of Present Illness Narrative History of Present Illness (Text): 02/21/19 22:26 38 yo w/ PMH of seasonal allergies, c/o SOB and wheezing due to seasonal allergies. States that she has been taking zyrtec without improvement. She denies any h/o asthma. Denies fever, chills, URI, CP, back pain, h/o smoking, recent travel. PMD Ahktar Past Medical History - Infectious Disease Hx of Infectious Diseases: None - Tetanus Immunization Tetanus Immunization: Unknown - Past Medical History Past Medical History: No Previous - Cardiac Hx Cardiac Disorders: No - Pulmonary Hx Respiratory Disorders: No - Neurological Hx Neurological Disorder: No - HEENT Hx HEENT Disorder: No - Renal Hx Renal Disorder: Yes Hx Kidney Stones: Yes - Endocrine/Metabolic Hx Endocrine Disorders: No Hx Diabetes Mellitus Type 2: Yes - Hematological/Oncological Hx Blood Disorders: No - Integumentary Hx Dermatological Disorder: No - Musculoskeletal/Rheumatological Hx Musculoskeletal Disorders: Yes Hx Back Pain: Yes - Gastrointestinal Hx Gastrointestinal Disorders: No - Genitourinary/Gynecological Hx Genitourinary Disorders: No - Psychiatric Hx Psychophysiologic Disorder: No Hx Substance Use: No - Surgical History Hx Cholecystectomy: Yes - Anesthesia Hx Anesthesia: Yes Hx Anesthesia Reactions: No Hx Malignant Hyperthermia: No - Suicidal Assessment Feels Threatened In Home Enviroment: No Family/Social History Family/Social History: No Known Family HX Smoking Status: Never Smoked Hx Alcohol Use: No Hx Substance Use: No Allergies/Home Meds Allergies/Adverse Reactions: Allergies ibuprofen Allergy (Verified 02/26/18 23:51) RASH Home Medications: Home Meds Medication Instructions Recorded Confirmed metFORMIN [glucOPHAGE] 1 tab PO DAILY 02/21/19 02/21/19 Review of Systems - Review of Systems Constitutional: absent: Fatigue, Fevers ENT: Sinus Congestion. absent: Sore Throat, Rhinorrhea Respiratory: SOB. absent: Cough Cardiovascular: absent: Chest Pain, Palpitations Musculoskeletal: absent: Arthralgias, Back Pain, Neck Pain Skin: absent: Rash, Skin Lesions Neurological: absent: Headache, Dizziness Physical Exam Vital Signs Temp Pulse Resp BP Pulse Ox 02/21/19 21:40 97.4 F L 93 H 18 137/81 97 Temperature: Afebrile Blood Pressure: Normal Pulse: Regular Respiratory Rate: Normal Appearance: Positive for: Well-Appearing, Non-Toxic, Comfortable Pain Distress: None Mental Status: Positive for: Alert and Oriented X 3 - Systems Exam Head: Present: Atraumatic, Normocephalic Pupils: Present: PERRL Extroacular Muscles: Present: EOMI Conjunctiva: Present: Normal Mouth: Present: Moist Mucous Membranes Neck: Present: Normal Range of Motion Respiratory/Chest: Present: Good Air Exchange, Wheezes (+b/l expiratory wheezing). No: Respiratory Distress, Accessory Muscle Use, Rales, Rhonchi Cardiovascular: Present: Regular Rate and Rhythm, Normal S1, S2. No: Murmurs Back: Present: Normal Inspection Upper Extremity: Present: Normal Inspection. No: Cyanosis, Edema Lower Extremity: Present: Normal Inspection. No: Edema Neurological: Present: GCS=15, CN II-XII Intact, Speech Normal Skin: Present: Warm, Dry, Normal Color. No: Rashes Psychiatric: Present: Alert, Oriented x 3, Normal Insight, Normal Concentration Medical Decision Making ED Course and Treatment: 02/21/19 22:24 Patient medicated with duoneb x 2 and prednisone po. 02/21/19 22:55 On re-evaluation, patient reports that symptoms are improving. She remains AAOx3, breathing easy and unlabored, lungs still with expiratory wheezing. Patient given another 2 of duonebd. 02/21/19 23:50 On second re-evaluation, patient reports that significant improvement of symptoms. Patient is smiling, in good spirits, verbalizing that she wants to go home, speaking in full sentences, breathing easy and unlabored, lungs are clear with very slight expiratory wheeze at the bases. Advised to follow up with primary care physician in 1-2 days without fail. Advised to take medication as prescribed. Return to the emergency room at any time for any new or worsening symptoms. Patient states she fully agrees with and understands discharge instructions. States that she agrees with the plan and disposition. Verbalized and repeated discharge instructions and plan. I have given the patient opportunity to ask any additional questions. - Medication Orders Current Medication Orders: Discontinued Medications Albuterol/Ipratropium (Duoneb 3 Mg/0.5 Mg (3 Ml) Ud) 3 ml IH Q15M MATT Stop: 02/21/19 22:16 Prednisone (Prednisone Tab) 40 mg PO STAT STA Stop: 02/21/19 21:56 - PA / AREA LOSS PREVENTION MANAGER / Resident Statement MD/DO has reviewed & agrees with the documentation as recorded. Disposition/Present on Arrival - Present on Arrival Any Indicators Present on Arrival: No History of DVT/PE: No History of Uncontrolled Diabetes: No Urinary Catheter: No History of Decub. Ulcer: No History Surgical Site Infection Following: None - Disposition Have Diagnosis and Disposition been Completed?: Yes Diagnosis: Asthma, H/O seasonal allergies Disposition: HOME/ ROUTINE Disposition Time: 23:50 Patient Plan: Discharge Patient Problems: Current Active Problems Problem Status Onset Asthma Acute H/O seasonal allergies Acute Condition: IMPROVED Discharge Instructions (ExitCare): Asthma in Adults, Seasonal Allergies in Adults Additional Instructions: Thank you for letting us take care of you today. You were treated for acute asthma, h/o seasonal allergies. The emergency medical care you received today was directed at your acute symptoms. Take medications as prescribed. Return to the Emergency Department if your symptoms worsen, do not improve, or if you have any other problems. Please contact your doctor in 2 days for re-evaluation and follow up. Bring any paperwork you were given at discharge with you along with any medications you are taking to your follow up visit. Our treatment cannot replace ongoing medical care by a primary care provider (PCP) outside of the emergency department. Prescriptions: Albuterol 0.083% [Albuterol Sulfate 3 Ml] 3 ml IH Q4 #100 neb predniSONE [predniSONE Tab] 40 mg PO DAILY #8 tab Referrals: Rere Restrepo MD [Primary Care Provider] - Follow up with primary Forms: [employer] (Slovak), WORK NOTE
[2019-02-22 00:14] VITALS: BP 127/71; PULSE 87; O2SAT 100
== END 2019-02-22 | disposition home or self-care (01) ==
LOC: ED 21:22
DX: J45.909 Unspecified asthma, uncomplicated (principal); E11.9 Type 2 diabetes mellitus without complications